=== PATIENT | female | born 1990 ===

== ENCOUNTER 2023-05-25 06:12 | Day surgery (SDC) | payer OTHER, SELFPAY ==
[2023-05-25] VITALS (11 sets, daily range): BP systolic 114–158; BP diastolic 62–97; BMI 47.1
[2023-05-25] MEDS: NORMOSOL-R 1000 IV (07:46)
[2023-05-25 07:48] LABS: Glucose - Point of Care 120 mg/dl (70-99)
[2023-05-25 10:22] LABS: Glucose - Point of Care 133 mg/dl (70-99)
[2023-05-25] MEDS: DILAUDID 0.25 MG IV ×3 (10:29→11:06)
[2023-05-25] MEDS: ROXICODONE 10 MG PO (12:02)
== END 2023-05-25 12:45 | disposition home or self-care (01) ==
LOC: SDS 06:12
PROVIDERS: ATTENDING PHYSICIAN Otolaryngology
DX: J34.2 Deviated nasal septum (principal); J01.91 Acute recurrent sinusitis, unspecified; J32.0 Chronic maxillary sinusitis; J32.2 Chronic ethmoidal sinusitis
CPT/HCPCS: 30520; 88304; 88311; 82962; 87070; 87075; 87076; 87077; 87147; 87185; 87205

== ENCOUNTER 2024-07-25 06:03 | Day surgery (SDC) | payer OTHER, SELFPAY ==
[2024-07-25] VITALS (12 sets, daily range): BP systolic 91–123; BP diastolic 42–86; BMI 48.5
[2024-07-25] MEDS: NORMOSOL-R/PLASMALYTE-A 1000 IV (07:00)
[2024-07-25 07:02] LABS: Glucose - Point of Care 100 mg/dl (70-99)
[2024-07-25] MEDS: DILAUDID 0.5 MG IV (09:29)
[2024-07-25 09:36] LABS: Glucose - Point of Care 138 mg/dl (70-99)
[2024-07-25] MEDS: DILAUDID 0.25 MG IV ×2 (09:40→09:55)
[2024-07-25] MEDS: ROXICODONE 5 MG PO (11:26)
== END 2024-07-25 12:10 | disposition home or self-care (01) ==
LOC: SDS 06:03
PROVIDERS: ATTENDING PHYSICIAN Otolaryngology
DX: J32.9 Chronic sinusitis, unspecified (principal)
CPT/HCPCS: 31255; 31267; 88304; 88311; 82962; 87070; 87075; 87077; 87147; 87205; 88365